=== PATIENT | male | born 1940 | race Caucasian/White ===

== ENCOUNTER 2021-12-04 17:54 | Emergency (ER) | payer MEDICARE ==
[2021-12-04 18:05] VITALS: BP 120/70; PULSE 101; RESP 20; TEMP 97.9
[2021-12-04] MEDS ORDERED: LIDOCAINE 1% INJ 10MG/ML (20 ML MDV) SQ ONE (18:50)
[2021-12-04] MEDS ORDERED: DIPH,PERTUS(ACELL)TETVAC-LF 0.5 ML VIAL IM ONE (19:20)
--- NOTE | 2021-12-04 19:38 | XR ---
EXAMINATION TYPE: XR hand complete LT DATE OF EXAM: 12/04/2021 COMPARISON: NONE HISTORY: Laceration injury TECHNIQUE: 3 views FINDINGS: There is some soft tissue deformity at the middle phalanx of the index finger consistent wi th laceration. There is transverse fracture through the shaft of the middle phalanx index finger left hand. No dislocation. No foreign body seen. IMPRESSION: Laceration deformity. Nondisplaced fracture. No foreign body seen.
[2021-12-04] MEDS ORDERED: ceFAZolin 1,000 MG VIAL (IM USE) IM STA (19:45)
--- NOTE | 2021-12-04 21:40 | ED ---
Wound/Laceration HPI - General Chief Complaint: Wound/Laceration Stated Complaint: L hand laceration Time Seen by Provider: 12/04/21 18:29 Source: patient Mode of arrival: ambulatory Limitations: no limitations - History of Present Illness Initial Comments: Patient is an 81-year-old male who presents to the emergency department with a chief complaint of laceration. Patient reports he is using a chainsaw when he cut his left index finger with it. Patient reports pain over the laceration. He states that he is able to bend his wrist and fingers with no limitation. He denies numbness and tingling of the hand/fingers. He denies blood thinner use. He is not up-to-date on tetanus. - Related Data Previous Rx's Medication Instructions Recorded Cephalexin [Keflex] 500 mg PO Q6HR 5 Days #20 cap 12/04/21 Allergies Allergy/AdvReac Type Severity Reaction Status Date / Time No Known Allergies Allergy Verified 12/04/21 18:05 Review of Systems ROS Statement: Those systems with pertinent positive or pertinent negative responses have been documented in the HPI. ROS Other: All systems not noted in ROS Statement are negative. Past Medical History Past Medical History: No Reported History History of Any Multi-Drug Resistant Organisms: None Reported Past Surgical History: No Surgical Hx Reported Past Psychological History: No Psychological Hx Reported Smoking Status: Never smoker Past Alcohol Use History: Occasional Past Drug Use History: None Reported General Exam Limitations: no limitations General appearance: alert, in no apparent distress Head exam: Present: atraumatic, normocephalic, normal inspection Eye exam: Present: normal appearance, PERRL, EOMI. Absent: scleral icterus, co njunctival injection, periorbital swelling Respiratory exam: Present: normal lung sounds bilaterally. Absent: respiratory distress, wheezes, rales, rhonchi, stridor Cardiovascular Exam: Present: regular rate, normal rhythm, normal heart sounds. Absent: systolic murmur, diastolic murmur, rubs, gallop, clicks GI/Abdominal exam: Present: soft, normal bowel sounds. Absent: distended, tenderness, guarding, rebound, rigid Extremities exam: Present: other (5 cm laceration over the anterior and medial side of left index finger, neurovascularly intact, full range of motion of the wrist and digits) Neurological exam: Present: alert, oriented X3, CN II-XII intact Psychiatric exam: Present: normal affect, normal mood Skin exam: Present: warm, dry, intact, normal color. Absent: rash Course Vital Signs 12/04/21 18:01 Temperature 97.9 F Pulse Rate 101 H Respiratory 20 Rate Blood Pressure 120/70 O2 Sat by Pulse 96 Oximetry Procedures - Laceration Laceration #1 Consent Obtained: verbal consent Indication: laceration Site: other (Left index finger) Size (cm): 5 Description: irregular Depth: simple, single layer Anesthetic Used: lidocaine 1% Anesthesia Technique: local infiltration, nerve block Pre-repair: wound explored, irrigated extensively, deep structures intact Type of Sutures: nylon Size of Sutures: 5-0 Number of Sutures: 13 Technique: simple, interrupted Complications: bleeding (Bleeding was controlled with tourniquet and direct pressure) Patient Tolerated Procedure: well - Orthopedic Splinting/Casting Injury #1 Upper Extremity Immobilizer: aluminum form splint (Left index finger) Medical Decision Making - Medical Decision Making This is an 81-year-old who presents with laceration. Thorough history and examination were performed. Left hand x-ray reveals a nondisplaced fracture with no foreign body. Wound was explored and irrigated extensively. It was approximated with 13 sutures. Patient did have increased bleeding which I was able to control with a tourniquet and direct pressure. Wound dressing was applied and index finger was placed in an aluminum form splint. Wound care education was provided. Kefzol and tetanus were given. Patient was referred to cash management specialist for further evaluation. He was discharged with Keflex prescription. He was instructed to return to the emergency department in 7-10 days for suture removal. Return parameters were discussed. Patient and verbalize understanding and are agreeable to plan. Dr. Russ is my attending. Disposition Clinical Impression: Laceration Disposition: HOME SELF-CARE Condition: Good Instructions (If sedation given, give patient instructions): Laceration (ED) Additional Instructions: Keep wound dry and clean. Take antibiotic as prescribed. Follow-up with cash management specialist tomorrow. Return to the emergency department if you experience new, concerning, or worsening symptoms. Prescriptions: Cephalexin [Keflex] 500 mg PO Q6HR 5 Days #20 cap Is patient prescribed a controlled substance at d/c from ED?: No Referrals: None,Stated [Primary Care Provider] - 1-2 days Abelino Gonzalez MD [Medical Doctor] - 1-2 days Time of Disposition: 21:40
[2021-12-04] MEDS ORDERED: ACET/COD 300 MG/30 MG STARTER PACK 6 TAB BTL PO STA (21:54)
== END 2021-12-04 22:05 | disposition home or self-care (01) ==
LOC: EC 17:54
DX: S61.211A Laceration without foreign body of left index finger without damage to nail, initial encounter (principal); W26.8XXA Contact with other sharp object(s), not elsewhere classified, initial encounter
CPT/HCPCS: 99283; 96372; 90471; 12002; 73130; 90715; J0690; J2001

== ENCOUNTER 2023-08-09 10:39 | Inpatient (IN) | payer MEDICARE ==
--- NOTE | 2023-08-09 11:34 | ED ---
Fall HPI - General Chief Complaint: Fall Stated Complaint: fall- R hip pain Time Seen by Provider: 08/09/23 11:20 Source: patient, family, RN notes reviewed Mode of arrival: ambulatory - History of Present Illness Initial Comments: Patient is an 82-year-old male presenting to the ER with chief complaint of a fall. Patient has no significant past medical history. Patient states he had a fall this morning while helping his out of her recliner. Patient states he felt dizzy, like the room is spinning, prior to his fall. He reports he's been feeling dizzy when he is laying in bed and when he rolled over the dizziness increased. Dizziness is a new symptoms for him. Patient states he landed on his right hip and has been having constant pain since. Denies any paresthesias, back pain, chest pain, shortness of breath, headache, urinary symptoms. Patient denies any blood thinner use, loss of consciousness, other injuries. - Related Data Previous Rx's Medication Instructions Recorded Cephalexin [Keflex] 500 mg PO Q6HR 5 Days #20 cap 12/04/21 Allergies Allergy/AdvReac Type Severity Reaction Status Date / Time No Known Allergies Allergy Verified 12/04/21 18:05 Review of Systems ROS Statement: Those systems with pertinent positive or pertinent negative responses have been documented in the HPI. ROS Other: All systems not noted in ROS Statement are negative. Past Medical History Past Medical History: No Reported History History of Any Multi-Drug Resistant Organisms: None Reported Past Surgical History: No Surgical Hx Reported Past Psychological History: No Psychological Hx Reported Smoking Status: Never smoker Past Alcohol Use History: Occasional Past Drug Use History: None Reported General Exam Limitations: no limitations General appearance: alert, in no apparent distress Head exam: Present: atraumatic, normocephalic, normal inspection Respiratory exam: Present: normal lung sounds bilaterally. Absent: respiratory distress, wheezes, rales, rhonchi, stridor Cardiovascular Exam: Present: regular rate, normal rhythm, normal heart sounds. Absent: systolic murmur, diastolic murmur, rubs, gallop, clicks GI/Abdominal exam: Present: soft, normal bowel sounds. Absent: distended, tenderness, guarding, rebound, rigid Extremities exam: Present: other (2+ distalis pedis pulses bilaterally, right leg roll elicits pain, ) Course Vital Signs 08/09/23 10:51 Temperature 98.7 F Pulse Rate 62 Respiratory 18 Rate Blood Pressure 130/74 O2 Sat by Pulse 98 Oximetry Medical Decision Making - Medical Decision Making Was pt. sent in by a medical professional or institution (JACINTO Chaves, AUTHORIZATION REP, urgent care, hospital, or shelter...) When possible be specific @ -No Did you speak to anyone other than the patient for history (EMS, parent, family, police, friend...)? What history was obtained from this source @ -[Family Did you review nursing and triage notes (agree or disagree)? Why? @ -I reviewed and agree with nursing and triage notes Were old charts reviewed (outside hosp., previous admission, EMS record, old EKG, old radiological studies, urgent care reports/EKG's, shelter records)? Report findings @ -No old charts were reviewed Differential Diagnosis (chest pain, altered mental status, abdominal pain women, abdominal pain men, vaginal bleeding, weakness, fever, dyspnea, syncope, headache, dizziness, GI bleed, back pain, seizure, CVA, palpatations, mental health, musculoskeletal)? @ -[nDifferential Musculoskeletal Muscular strain, contusion, ligament sprain, fracture, arthritis, septic arthritis, bursitis, cellulitis, muscle spasm, nerve compression, DVT, arterial occlusion, herpes zoster, electrolyte abnormality, tumor.... This is not meant to be in all inclusive list EKG interpreted by me (3pts min.). @ -As above X-rays interpreted by me (1pt min.). @ -Right hip x-ray shows foreshortening of the right femoral neck. CT interpreted by me (1pt min.). @ -[CT of right hip shows displaced subcapital fracture of right femur. CT of brain without contrast shows no evidence of acute intracranial hemorrhage or mass effect U/S interpreted by me (1pt. min.). @ -None done What testing was considered but not performed or refused? (CT, X-rays, U/S, labs)? Why? @ -None What meds were considered but not given or refused? Why? @ -None Did you discuss the management of the patient with other professionals (professionals i.e. JACINTO Chaves, AUTHORIZATION REP, lab, RT, psych nurse, social service worker, wind power project manager, teacher, tax revenue officer, case resolution specialist)? Give summary @ -Yes, I discussed the case with Viridiana from Dr. Orozco's office. She advised admission and NPO at midnight. Was smoking cessation discussed for >3mins.? @ -No Was critical care preformed (if so, how long)? @ -No Were there social determinants of health that impacted care today? How? (Homelessness, low income, unemployed, alcoholism, drug addiction, transportation, low edu. Level, literacy, decrease access to med. care, halfway, rehab)? @ -No Was there de-escalation of care discussed even if they declined (Discuss DNR or withdrawal of care, Hospice)? DNR status @ -No What co-morbidities impacted this encounter? (DM, HTN, Smoking, COPD, CAD, Cancer, CVA, ARF, Chemo, Hep., AIDS, mental health diagnosis, sleep apnea, morbid obesity)? @ -None Was patient admitted / discharged? Hospital course, mention meds given and route, prescriptions, significant lab abnormalities, going to OR and other pertinent info. @ -Admitted. X-ray showed foreshortening of the right femoral neck and suggested CT. CT of the right hip showed displaced subcapital fracture of right femur. Patient received IV Dilaudid and Zofran. Patient will be admitted to orthopedics for surgical repair. Patient expressed understanding. Undiagnosed new problem with uncertain prognosis? @ -No Drug Therapy requiring intensive monitoring for toxicity (Heparin, Nitro, Insulin, Cardizem)? @ -No Were any procedures done? @ -No Diagnosis/symptom? @ -Right displaced subcapital fracture of femur Acute, or Chronic, or Acute on Chronic? @ -Acute Uncomplicated (without systemic symptoms) or Complicated (systemic symptoms)? @ -Uncomplicated Side effects of treatment? @ -No Exacerbation, Progression, or Severe Exacerbation? @ -No Poses a threat to life or bodily function? How? (Chest pain, USA, MD, pneumonia, PE, COPD, DKA, ARF, appy, cholecystitis, CVA, Diverticulitis, Homicidal, Suicidal, threat to staff... and all critical care pts) @ -No - Lab Data Result diagrams: 08/09/23 12:38 08/09/23 12:38 Lab Results 08/09/23 08/09/23 08/09/23 Range/Units 12:38 12:38 14:48 WBC 11.8 H (3.8-10.6) k/uL RBC 4.31 (4.30-5.90) m/uL Hgb 13.6 (13.0-17.5) gm/dL Hct 41.1 (39.0-53.0) % MCV 95.4 (80.0-100.0) fL MCH 31.6 (25.0-35.0) pg MCHC 33.1 (31.0-37.0) g/dL RDW 12.8 (11.5-15.5) % Plt Count 181 (150-450) k/uL MPV 7.7 Neutrophils % 89 % Lymphocytes % 7 % Monocytes % 3 % Eosinophils % 1 % Basophils % 0 % Neutrophils # 10.5 H (1.3-7.7) k/uL Lymphocytes # 0.8 L (1.0-4.8) k/uL Monocytes # 0.3 (0-1.0) k/uL Eosinophils # 0.1 (0-0.7) k/uL Basophils # 0.0 (0-0.2) k/uL PT 11.3 (10.0-12.5) sec INR 1.0 (<1.2) APTT 23.2 (22.0-30.0) sec Sodium 139 (137-145) mmol/L Potassium 4.3 (3.5-5.1) mmol/L Chloride 107 (98-107) mmol/L Carbon Dioxide 24 (22-30) mmol/L Anion Gap 8 mmol/L BUN 20 (9-20) mg/dL Creatinine 0.83 (0.66-1.25) mg/dL Est GFR (CKD-EPI)AfAm >90 (>60 ml/min/1.73 sqM) Est GFR (CKD-EPI)NonAf 83 (>60 ml/min/1.73 sqM) Glucose 104 H (74-99) mg/dL Calcium 9.4 (8.4-10.2) mg/dL Magnesium 2.2 (1.6-2.3) mg/dL Total Bilirubin 0.8 (0.2-1.3) mg/dL AST 34 (17-59) U/L ALT 29 (4-49) U/L Alkaline Phosphatase 126 (38-126) U/L Total Protein 6.9 (6.3-8.2) g/dL Albumin 4.0 (3.5-5.0) g/dL - EKG Data -: EKG Interpreted by Me EKG Comments: EKG taken at 1300 shows normal sinus rhythm with a first-degree AV block and no T-wave abnormalities noted. Ventricular rate 78, GA interval 248, QRS duration 101, QT/QTC 418/451. Disposition Clinical Impression: Subcapital fracture of right femur Disposition: ADMITTED IP TO THIS HOSP Condition: Stable Is patient prescribed a controlled substance at d/c from ED?: No Referrals: None,Stated [Primary Care Provider] - 1-2 days Time of Disposition: 15:30
--- NOTE | 2023-08-09 11:44 | XR ---
EXAMINATION TYPE: XR Hip Complete RT DATE OF EXAM: 08/09/2023 COMPARISON: NONE HISTORY: Pain TECHNIQUE: 2 views submitted FINDINGS: There is foreshortening of the femoral neck suspicious for subcapital fracture. Moderate hypertrophic arthropathy of the hip. Diffuse osteopenia. IMPRESSION: 1. Foreshortening of the right femoral neck finding suspicious for subcapital fracture. Recommend CT scan.
[2023-08-09] MEDS ORDERED: HYDROmorphone 1 MG/ML 1 ML SYRINGE IM STA (11:57)
[2023-08-09] MEDS ORDERED: ONDANSETRON 4 MG/2 ML VIAL IVP STA (12:35)
[2023-08-09] MEDS ORDERED: HYDROmorphone 1 MG/ML 1 ML SYRINGE IVP STA (12:35)
[2023-08-09 13:01] LABS: Basophils % (A) 0 %; Eosinophils # (A) 0.1 k/uL (0-0.7); Eosinophils % (A) 1 %; HCT 41.1 % (39.0-53.0); HGB 13.6 gm/dL (13.0-17.5); Lymphocytes # (A) 0.8 k/uL (1.0-4.8); Lymphocytes % (A) 7 %; MCH 31.6 pg (25.0-35.0); MCHC 33.1 g/dL (31.0-37.0); MCV 95.4 fL (80.0-100.0); Mean Platelet Volume 7.7; Monocytes # (A) 0.3 k/uL (0-1.0); Monocytes % (A) 3 %; Neutrophils # (A) 10.5 k/uL (1.3-7.7); Neutrophils % (A) 89 %; Platelet Count 181 k/uL (150-450); RBC 4.31 m/uL (4.30-5.90); RDW 12.8 % (11.5-15.5); WBC 11.8 k/uL (3.8-10.6)
[2023-08-09 13:17] LABS: ALT 29 U/L (4-49); AST 34 U/L (17-59); African American GFR (CKD) >90 (>60 ml/min/1.73 sqM); Alkaline Phosphatase 126 U/L (38-126); Anion Gap 8 mmol/L; Blood Urea Nitrogen 20 mg/dL (9-20); Calcium 9.4 mg/dL (8.4-10.2); Carbon Dioxide 24 mmol/L (22-30); Chloride 107 mmol/L (98-107); Glucose 104 mg/dL (74-99); Magnesium 2.2 mg/dL (1.6-2.3); Non-African American GFR(CKD) 83 (>60 ml/min/1.73 sqM); Potassium 4.3 mmol/L (3.5-5.1); Sodium 139 mmol/L (137-145); Total Bilirubin 0.8 mg/dL (0.2-1.3); Total Protein 6.9 g/dL (6.3-8.2)
--- NOTE | 2023-08-09 14:03 | CT ---
EXAMINATION TYPE: CT brain wo con DATE OF EXAM: 08/09/2023 COMPARISON: None HISTORY: Pain CT DLP: 1302 mGycm Automated exposure control for dose reduction was used. FINDINGS: Exam is limited in assessment for hemorrhage due to artifact. There is ectasia of the vertebral syste m with intracranial atherosclerotic matter changes. There is no obvious midline shift. No obvious siz able intracranial hemorrhage. Moderate generalized degenerative change and mild hypoattenuation in th e white matter which is nonspecific but most typical remote white matter ischemia. Slight asymmetric CSF appearance along the superior right cerebral convexity appears chronic. Craniocervical junction m aintained. Sella turcica is normal. Orbits are symmetric. IMPRESSION: LIMITED EXAM DUE TO ARTIFACT DEMONSTRATES NO EVIDENCE OF ACUTE INTRACRANIAL HEMORRHAGE OR MASS EFFECT VISUALIZED.
--- NOTE | 2023-08-09 14:13 | CT ---
EXAMINATION TYPE: CT hip RT wo con DATE OF EXAM: 08/09/2023 COMPARISON: X-ray 08/09/2023 HISTORY: Fall, Rt hip pain CT DLP: 403 mGycm Automated exposure control for dose reduction was used. FINDINGS: There is a displaced subcapital fracture of the right hip with angulation. There is moderate hypertrophic arthropathy of the hip correlate for femoral acetabular impingement. P ubic rami are intact and there is hypertrophic change of the pubic symphysis. Adjacent soft tissue edema to the fracture noted. Bladder is distended and the prostate is enlarged. Vascular calcifications noted. IMPRESSION: DISPLACED SUBCAPITAL FRACTURE RIGHT FEMUR.
[2023-08-09] MEDS ORDERED: ONDANSETRON 4 MG/2 ML VIAL IVP PRN (14:28)
[2023-08-09] MEDS ORDERED: NALOXONE 0.4 MG/ML 1 ML VIAL IV PRN (14:38)
[2023-08-09 15:07] LABS: Partial Thromboplastin Time 23.2 sec (22.0-30.0); Prothrombin Time 11.3 sec (10.0-12.5)
[2023-08-09] MEDS: SODIUM CHLORIDE 0.9% 1,000 ML IV SCH (15:38)
--- NOTE | 2023-08-09 15:41 | XR ---
EXAMINATION TYPE: XR chest 1V DATE OF EXAM: 08/09/2023 COMPARISON: NONE HISTORY: Presurgical TECHNIQUE: Single frontal view of the chest is obtained. FINDINGS: There is no focal air space opacity, pleural effusion, or pneumothorax seen. The cardiac silhouette size is within normal limits. The osseous structures are intact. There is a 1 cm nodule adjacent to left heart border. Underlying COPD. Diffuse osteopenia and AC joint arthropathy. Ectasia of the thoracic aorta. IMPRESSION: 1. 1 cm nodule left lower lobe. Recommend CT scan.
--- NOTE | 2023-08-09 15:53 | P.HPOR ---
History of Present Illness H&P Date: 08/09/23 This is an 82-year-old male who is admitted for right hip fracture. Patient is seen and evaluated at bedside today. Patient states that he was at home helping his get out of a chair when he felt dizzy and fell. Patient states that this happened around 8 AM this morning. Patient presented to the emergency room due to continued pain and x-rays confirmed right hip fracture. Patient denies any significant past medical history. Patient admits to chronic swelling in both lower extremities. Patient states that he does not take any medications. Patient states that he normally ambulates without any assistive devices and lives at home with his . Patient denies any fever/chills, numbness, weakness, tingling, abdominal pain, shortness of breath or chest pain. Review of Systems See HPI. Past Medical History Past Medical History: No Reported History History of Any Multi-Drug Resistant Organisms: None Reported Past Surgical History: No Surgical Hx Reported Past Psychological History: No Psychological Hx Reported Smoking Status: Never smoker Past Alcohol Use History: Occasional Past Drug Use History: None Reported Medications and Allergies Home Medications Medication Instructions Recorded Confirmed Type Cephalexin [Keflex] 500 mg PO Q6HR 5 Days #20 cap 12/04/21 Rx Allergies Allergy/AdvReac Type Severity Reaction Status Date / Time No Known Allergies Allergy Verified 12/04/21 18:05 Physical Examination On exam patient is lying comfortably in bed in no acute distress. Patient is alert and oriented 3. Right lower extremity: There is pain and limitation with any attempted motion of the right hip. Mild shortening and external rotation. There is swelling of bilateral lower extremities with venous stasis dermatitis present. Posterior tibial pulse is 2+. Patient has full range of motion of the right foot and ankle. Calf is soft and nontender to palpation. Sensation intact. Neurovascular status and circulatory status are intact. Head is normocephalic and atraumatic. On exam of the left lower extremity there is some pain in the left knee which the patient states is chronic for him. Otherwise calf is soft and nontender to palpation. Sensation intact. Neurovascular status and circulatory status are intact. Exams of bilateral upper extremities are within normal limits. Results X-rays and a CT of the right hip and pelvis reveal right femoral neck fracture. - Labs Labs: Abnormal Lab Results - Last 24 Hours (Table) 08/09/23 08/09/23 Range/Units 12:38 12:38 WBC 11.8 H (3.8-10.6) k/uL Neutrophils # 10.5 H (1.3-7.7) k/uL Lymphocytes # 0.8 L (1.0-4.8) k/uL Glucose 104 H (74-99) mg/dL H & H 08/09/23 Range/Units 12:38 Hgb 13.6 (13.0-17.5) gm/dL Hct 41.1 (39.0-53.0) % Coagulation 08/09/23 Range/Units 14:48 INR 1.0 (<1.2) Result Diagrams: 08/09/23 12:38 08/09/23 12:38 Assessment and Plan (1) Fall Current Visit: Yes Status: Acute Code(s): W19.XXXA - UNSPECIFIED FALL, INITIAL ENCOUNTER SNOMED Code(s): 9839484 (2) Closed right hip fracture Current Visit: Yes Status: Acute Code(s): S72.001A - FRACTURE OF UNSP PART OF NECK OF RIGHT FEMUR, INIT SNOMED Code(s): 699359700 Plan: 1. Patient is to be NPO after midnight. 2. Continue bed rest and pain control. 3. Appreciate input from internal medicine. 4. Planning for right hip hemiarthroplasty on 08/10/[address] Orozco pending medical clearance and patient consent. All questions and concerns are addressed at bedside today with the patient and his .
[2023-08-09] MEDS: HYDROmorphone 0.5 MG/0.5 ML SYRINGE IVP PRN (18:55)
[2023-08-10] MEDS: HYDROmorphone 0.5 MG/0.5 ML SYRINGE IVP PRN (01:17)
[2023-08-10] MEDS: SODIUM CHLORIDE 0.9% 1,000 ML IV SCH ×3 (05:16→18:50)
--- NOTE | 2023-08-10 06:33 | P.CONS ---
History of Present Illness - Reason for Consult Consult date: 08/10/23 pre op clearance - Chief Complaint right leg pain - History of Present Illness 82 year old male with hisotyr of skin cancer he is coming in for evaluation of right hip pain. This morning he was helping his that when he suddenly felt dizzy and fell down resulted in severe pain in his right hip for which she is coming in for evaluation he denies any head injury he denies any loss of consciousness denies any chest pain shortness of breath denies any some lower incidences in the past. he believes he is in good health , he reports pain is controlled with meds, but could not urinate earlier and had to have a catheter. he denies any associated palpitations, chest pain , SOB, fever, chills, nausea or vomiting. review of systems Pertinent positives as noted in HPI. All other systems were reviewed and are negative on exam Constitutional: No acute distress, conversant, pleasant Eyes: Anicteric sclerae, moist conjunctiva, Pupils equal round reactive to light ENMT: NC/AT Oropharynx clear, no erythema, or exudates Neck: Supple, no masses, or JVD No carotid bruits No thyromegaly Lungs: Clear to auscultation Clear to percussion Normal respiratory effort, no accessory muscle use Cardiovascular: Heart regular in rate and rhythm, No murmurs, gallops, or rubs No peripheral edema Abdominal: Soft Nontender, no guarding, rebound or rigidity Abdomen moving with respiration Normoactive bowel sounds No hepatomegaly, No splenomegaly No palpable mass No abdominal wall hernia noted Extremities: No digital cyanosis No clubbing Pedal pulses intact and symmetrical Radial pulses intact and symmetrical No calf tenderness Psychiatric: Alert and oriented to person, place and time Appropriate affect fair judgement Neuro Muscles Strength 5/5 in all 4 extremities except limited exam over ri ght lower extremity due to pain Sensation to light touch grossly present throughout Cranial nerves II-XII grossly intact Lymphatics: no palpable cervical or supraclavicular lymph nodes Past Medical History Past Medical History: No Reported History Additional Past Medical History / Comment(s): Skin cancer on face- treated with a one a day capsule treatment for 6 months History of Any Multi-Drug Resistant Organisms: None Reported Past Surgical History: No Surgical Hx Reported, Tonsillectomy Past Anesthesia/Blood Transfusion Reactions: No Reported Reaction Past Psychological History: No Psychological Hx Reported Smoking Status: Never smoker Past Alcohol Use History: Occasional Past Drug Use History: None Reported Medications and Allergies Home Medications Medication Instructions Recorded Confirmed Type Ascorbic Acid [Vitamin C] 1,000 mg PO W/BRKFST 08/09/23 08/09/23 History Multivitamins, Thera [Multivitamin 1 tab PO W/BRKFST 08/09/23 08/09/23 History (formulary)] Pyridoxine HCl (Vitamin B6) 100 mg PO W/BRKFST 08/09/23 08/09/23 History [Vitamin B-6] Quercetin 500 mg PO W/BRKFST 08/09/23 08/09/23 History Selenium 100 mcg PO W/BRKFST 08/09/23 08/09/23 History Ubidecarenone [Coenzyme Q10] 200 mg PO W/BRKFST 08/09/23 08/09/23 History Vitamin B Complex 1 cap PO W/BRKFST 08/09/23 08/09/23 History Allergies Allergy/AdvReac Type Severity Reaction Status Date / Time No Known Allergies Allergy Verified 08/09/23 16:12 Physical Exam Vitals: Vital Signs Temp Pulse Pulse Resp BP BP Pulse Ox 08/10/23 01:52 98.5 F 100 17 107/55 91 L 08/09/23 19:30 98 F 95 17 152/70 91 L 08/09/23 19:27 18 08/09/23 17:24 98.3 F 95 18 127/80 97 08/09/23 15:47 97 08/09/23 15:44 99 20 126/78 91 L 08/09/23 14:05 97.6 F 80 19 128/76 94 L 08/09/23 10:51 98.7 F 62 18 130/74 98 Intake and Output 08/09/23 08/09/23 08/10/23 14:59 22:59 06:59 Output Total 100 1000 Balance -100 -1000 Output: Urine 100 1000 Straight 1000 Other: Voiding Method Urinal Weight 86.183 kg 86.183 kg Results CBC & Chem 7: 08/09/23 12:38 08/09/23 12:38 Labs: Abnormal Lab Results - Last 24 Hours (Table) 08/09/23 08/09/23 Range/Units 12:38 12:38 WBC 11.8 H (3.8-10.6) k/uL Neutrophils # 10.5 H (1.3-7.7) k/uL Lymphocytes # 0.8 L (1.0-4.8) k/uL Glucose 104 H (74-99) mg/dL Assessment and Plan Assessment: patient is 82 year old Male , presetned with right hip pain after a fall. Patient denies any recent history or symptoms of congestive heart failure, mycardial infarction, syncope, arrhythmia, palpitation, or exertional dyspnea. Patient denies any past medical history of stroke, CAD, CHF, CKD, or DM. Patient is functional at baseline at >4 METs he is able to perform house chores with no limitations. Patient labs reviewed unremarkable , EKG showed normal sinus rhythm Patient is scheduled for orthopedic surgery to fix right hip fracture. This is of moderate risk, however, patient has no medical risk factors from her past medical history. Patient can proceed to surgery with moderate but acceptable perioperative cardiovascular risk factors. This has been explained to the patient , all questions answered, patient verbalized understanding and agreement. right hip fracture accidental fall , feeling dizzy CT brain no acute pathology CXR showed left sided pulmonary nodule , consider CT of the chest per radiology recommendations patient never a smoker pain control with opiates management per primary surgical team IVF hydration with normal saline 75 cc per hour WBC 11.8, Hgb 13.6 Na 139 K 4.3 Mg 2.2 Cr 0.8 thank you for this consultation
[2023-08-10] MEDS ORDERED: LACTATED RINGERS 1,000 ML IV ONE (15:48)
[2023-08-10] MEDS ORDERED: fentaNYL (PF) 50 MCG/ML 2 ML AMP ONE (16:06)
[2023-08-10] MEDS ORDERED: KETAMINE HCL IN 0.9 % NACL 50 MG/5 ML SYRINGE ONE (16:06)
[2023-08-10] MEDS ORDERED: PROPOFOL 10 MG/ML 20 ML VIAL IV ONE (16:06)
[2023-08-10] MEDS ORDERED: PHENYLEPHRINE 10 MG/ML 5 ML VIAL ONE (16:06)
[2023-08-10] MEDS ORDERED: MIDAZOLAM 2 MG/2 ML VIAL ONE (16:06)
[2023-08-10] MEDS ORDERED: ePHEDrine 50 MG/ML 1 ML VIAL ONE (16:06)
[2023-08-10] MEDS ORDERED: SODIUM CHLORIDE 0.9% 50 ML with ceFAZolin 2,000 MG IV ONE ×2 (16:09)
[2023-08-10] MEDS ORDERED: NALOXONE 0.4 MG/ML 1 ML VIAL IV PRN (18:17)
[2023-08-10] MEDS ORDERED: HYDROmorphone 0.5 MG/0.5 ML SYRINGE IVP PRN (18:17)
[2023-08-10] MEDS ORDERED: BENZOCAINE/MENTHOL LOZENG 1 EACH LOZENGE MUCOUS MEM PRN (18:17)
[2023-08-10] MEDS ORDERED: HYDROmorphone 1 MG/ML 1 ML SYRINGE IVP PRN (18:17)
--- NOTE | 2023-08-10 18:27 | P.OP ---
Date of Procedure: 08/10/23 Preoperative Diagnosis: Right hip comminuted femoral neck fracture, traumatic due to a fall Postoperative Diagnosis: Same Anesthesia: spinal Pathology: other (Femoral head to pathology) Condition: stable Disposition: PACU Description of Procedure: Preoperative diagnosis: Right femoral neck comminuted fracture, traumatic due to a fall Preoperative diagnosis: Same Procedure: Right Hip hemiarthroplasty Surgeon: Dr. Pam Jerome.: Christina CASEY who is present that the entire the case persistence during positioning dissection exposure placement of hardware and closure Anesthesia: Spinal Estimated blood loss: Approximately 200 mL Components implanted: [employer] size for fracture some collar with a 55 mm head and +4 neck and cement Disposition: To recovery room in good stable condition Operative indications The patient sustained a injury while he is trying to help his at home. His is often in a wheelchair and he fell while helping her. He had acute sudden right hip pain and was unable to get up. and suffered a femoral neck fracture which was displaced and angulated. We were involved in the case in regard to his hip fracture. The patient has other medical issues and some skin issues which she is getting active treatment. In regards to his right hip he had a new for traumatic fracture from which she was incapacitated. After evaluation it was determined that they would be a candidate for hip hemiarthroplasty via surgical intervention. This would give them the best chance of mobilization and ambulation. We discussed the range of treatment options from conservative to surgical. They elected proceed with surgical intervention. We answered their questions to the best of our ability healing which they can understand. We discussed all the risks, occasions alternatives and benefits of different treatment options including surgery in regards to his injury. I answered his questions best my ability. They signed an informed consent. Operative summary After obtaining informed consent evaluation by anesthesia, preoperative evaluation and clearance for medical service, the patient was identified and prepped Boucher area and the surgical site was marked. There brought to the operating room where the given appropriate anesthesia by the anesthesia department in standard fashion without any complications. Once the anesthesia was established we were able to position the patient. There placed in a lateral decubitus position with the operative side up being careful to pad any bony prominences and pressure points and place a excellent roll appropriately. The airway and C-spine was monitored continuously. Once patient was well positioned lower extremity was prepped and draped in normal standard sterile fashion. An appropriate keystone protocol and timeout was completed and were able to proceed with surgery. A curvilinear incision was established over the greater trochanter. Dissection was taken down to the tensor fascia sheri which was split in line with its fibers and extended proximally into the gluteal fibers. A Charnley retractor was established. The trochanteric bursa was inflamed and removed. I was able to then dissect down off the posterior aspect of the greater trochanter taking the piriformis tendon and the posterior capsule in one full-thickness flap and tacking it with suture. This expose the fracture at the femoral neck which was easily identified. A guide was used to establish the appropriate femoral neck cut and a bone- cutting saw was used to establish the femoral neck cut and good alignment and good position. All the bony fragments were removed. There was significant comminution of the femoral neck. Comminuted fragments were removed. The lesser trochanter appeared intact without any split. I was then able to use a corkscrew device to remove the femoral head from the acetabulum. Any loose fragments in the acetabulum were removed. The femoral head was measured for the appropriate size implant and then passed off for pathology. Appropriate retractors were placed and I established a lateral box cut chisel. I then used a starting reamer to establish the femoral canal area I then sequentially reamed with sequential reamers until we had good bony chatter distally. With this we then started to broach with sequential broaches to the appropriate sized to we had good fit and fill. There is no evidence any fracture in the possible femur. With the appropriate size broach well seated and stable I placed the trial neck and head. A gentle reduction was performed to get good reduction. The hip was taken through a good range of motion and found to be stable in the position of sleep and through a range of motion. It had a good shuck test. We were able to then dislocate the trial prosthesis. The broach was found to remain stable. It was then removed. The wound was copiously irrigated and suctioned dry with pulsatile lavage. The appropriate size femoral stem was chosen. The femoral shaft was prepared and irrigated copiously. It was then filled and pressurized with cement and then the shaft was positioned and placed in good alignment and good position with excellent fit and fill seated appropriately over the calcar until the cement was cured and solid. It was checked and found to be stable. The trunnion was cleaned and dried the femoral head was then positioned over the femoral neck malleted in position checked and found to be stable. The hip prosthesis was then gently reduced back into the acetabulum and found to have excellent position and excellent stability and excellent range of motion with stability. There is no evidence of dislocation or fracture. The wound was copiously irrigated and suctioned dry. We are able to proceed with closure. The piriformis and posterior capsule were reapproximated to the posterior aspect of the greater trochanter with transosseous stitches. The wound was irrigated and suctioned dry. The fascia was closed with #2 Quill for watertight closure. Subcutaneous tissue was irrigated and suctioned dry. Subcu tissues closed with 2-0 Vicryl subcuticular tissue was closed with 30 Quill. Wound is clean and dried and dressed with Dermabond and OpSite tape Drapes were broken down, the hip was held in stable position, and an abduction pillow was placed. The patient was then transferred back to their hospital bed being careful to maintain the hip and C-spine alignment and airway. Once stable to patient was transferred back to the postanesthesia care unit to be readmitted for pain control and DVT prophylaxis medical management and monitoring and mobilization we will continue follow patient closely throughout their postoperative course.
--- NOTE | 2023-08-10 19:18 | XR ---
EXAMINATION TYPE: XR Hip Limited RT DATE OF EXAM: 08/10/2023 6:40 PM CLINICAL INDICATION:Male, 82 years old with history of Status post hip surgery, assess surgical align [facility]; [facility] COMPARISON: 08/09/2023 TECHNIQUE: XR Hip Limited RT; hip was examined in the frontal projections FINDINGS: Post arthroplasty changes, hardware is intact, alignment is appropriate. No evidence of fra cture. Postoperative changes of the soft tissues with subcutaneous gas. No evidence of any acute osse ous pathology or joint dislocation. IMPRESSION: Hip arthroplasty with hardware intact and in appropriate alignment. No acute fracture.
[2023-08-10] MEDS: ASPIRIN 325 MG TAB PO SCH (22:23)
[2023-08-11] MEDS: SODIUM CHLORIDE 0.9% 1,000 ML IV SCH ×4 (05:48→20:18)
[2023-08-11] MEDS ORDERED: NON FORMULARY DRUG (Ubidecarenone [Coenzyme Q10] 200 MG Capsule) PO SCH (07:30)
[2023-08-11] MEDS ORDERED: NON FORMULARY DRUG (Selenium [Selenium] 100 MCG Tablet) PO SCH (07:30)
[2023-08-11 08:02] LABS: Basophils % (A) 0 %; Eosinophils % (A) 1 %; HCT 32.7 % (39.0-53.0); HGB 11.2 gm/dL (13.0-17.5); Lymphocytes # (A) 0.8 k/uL (1.0-4.8); Lymphocytes % (A) 9 %; MCH 32.4 pg (25.0-35.0); MCHC 34.3 g/dL (31.0-37.0); MCV 94.5 fL (80.0-100.0); Mean Platelet Volume 7.9; Monocytes # (A) 0.5 k/uL (0-1.0); Monocytes % (A) 5 %; Neutrophils # (A) 7.3 k/uL (1.3-7.7); Neutrophils % (A) 83 %; Platelet Count 127 k/uL (150-450); RBC 3.46 m/uL (4.30-5.90); RDW 13.1 % (11.5-15.5); WBC 8.7 k/uL (3.8-10.6)
--- NOTE | 2023-08-11 08:30 | P.PN ---
Progress Note - Text Progress Note Date: 08/11/23 Postoperative day #1 Patient is seen and examined today at bedside. The patient has some pain around the surgical site as expected. Pain is being controlled with medication. She has not yet gotten out of bed. He denies any new pains or numbness or tingling. He has not been able to void well on his own area he had to be straight cathed overnight. Physical Exam Afebrile with stable vital signs Abdomen is soft nontender. Chest has good excursion deep and space expiration The incision site is clean dry and intact. No erythema there is no purulence. Thigh has some mild swelling without any induration or drainage Extremities have not had neurologic change from prior to surgery. Sustained dorsal flexion plantar flexion and EHL Calves and thighs were soft nontender without evidence of DVT. Assessment/Plan Postoperative day #1 status post right hip hemiarthroplasty for acute right femoral neck fracture Patient is progressing as expected from the surgery. So far he is doing well in terms of his hip. We'll start to get him up out of bed today We will continue to increase the patient's mobilization with therapy. Patient is having trouble voiding on his own. He does not really have a primary care physician and with his urinary retention and required straight cath I think that we can start Flomax and if he is not able to void well we can place a catheter to keep overnight to give him some bowel rest before trialing to DC the catheter tomorrow We will continue pain control with oral or IV medications. We'll continue to follow patient closely.
[2023-08-11] MEDS: PYRIDOXINE 50 MG TAB PO SCH (09:50)
[2023-08-11] MEDS: FOLIC ACID-VIT B COMPLEX-VIT C 1 CAP PO SCH (09:50)
[2023-08-11] MEDS: ASCORBIC ACID 500 MG TAB PO SCH (09:51)
[2023-08-11] MEDS: MULTIVITAMINS, THERA 1 EACH TAB PO SCH (09:51)
[2023-08-11] MEDS: SENNOSIDES-DOCUSATE SODIUM 1 EACH TAB PO SCH (09:54)
[2023-08-11] MEDS: TAMSULOSIN 0.4 MG CAP.ER.24H PO SCH (09:54)
[2023-08-11] MEDS: ASPIRIN 325 MG TAB PO SCH ×2 (09:54→20:17)
[2023-08-11] MEDS ORDERED: RX INFO: IV CONTRAST WAS GIVEN 1 EACH MISC MISCELLANE PRN (10:24)
--- NOTE | 2023-08-11 10:24 | P.PN ---
Subjective Progress Note Date: 08/11/23 Patient says that he's had trouble urinating and feels generally weak following the procedure. Last night he needed a straight catheterization to relieve himself. He does have an appetite however. Gen: awake, alert HEENT: normocephalic, atraumatic, good hearing acuity, moist mucous membranes Resp: good air exchange, breathing comfortably with no accessory muscle use CVS: good distal perfusion x 4, GI: soft, NTTP, ND : no SPT, no CVAT, byrd catheter not present MSK: no pitting edema, no clubbing Neuro: non-focal, moving all extremities Psych: cooperative, euthymic mood Assessment/plan: patient is 82 year old Male , presetned with right hip pain after a fall. Patient labs reviewed unremarkable , EKG showed normal sinus rhythm Patient is status post right hip fracture ORIF. right hip fracture accidental fall , feeling dizzy -Status post ORIF -Orthopedic surgery following and managing for pain as well as DVT prophylaxis Acute blood loss anemia, expected outcome of surgery -Start patient on oral iron daily Urinary retention -BladderScan today with every 6 hours straight caths if patient continues to retain 1 cm pulmonary nodule -Computed tomography scan of the chest ordered Objective - Vital Signs Vital signs: Vital Signs Temp 99.2 F 08/11/23 01:40 Pulse 105 H 08/11/23 05:24 Resp 18 08/11/23 03:21 BP 105/55 08/11/23 05:24 Pulse Ox 90 L 08/11/23 03:21 FiO2 Intake & Output 08/10/23 08/11/23 08/11/23 18:59 06:59 18:59 Intake Total 1750 Output Total 850 975 Balance 900 -975 Intake: IV 850 Intake, IV Titration 900 Amount Sodium Chloride 0.9% 1, 900 000 ml @ 100 mls/hr IV . Q10H JAJA Rx#:[id number] Output: Urine 650 975 Straight 850 Estimated Blood Loss 200 Other: Voiding Method Urinal Urinal # Voids 2 - Labs CBC & Chem 7: 08/11/23 07:13 08/09/23 12:38 Labs: Abnormal Lab Results - Last 24 Hours (Table) 08/11/23 Range/Units 07:13 RBC 3.46 L (4.30-5.90) m/uL Hgb 11.2 L (13.0-17.5) gm/dL Hct 32.7 L (39.0-53.0) % Plt Count 127 L (150-450) k/uL Lymphocytes # 0.8 L (1.0-4.8) k/uL
[2023-08-11] MEDS: HYDROcodone/APAP 5-325MG 1 EACH TAB PO PRN ×2 (12:20→22:11)
[2023-08-11] MEDS: FERROUS SULFATE 325 MG TAB PO SCH (12:20)
--- NOTE | 2023-08-11 12:33 | CT ---
EXAMINATION TYPE: CT chest w con CT DLP: 265.30 mGycm, Automated exposure control for dose reduction was used. DATE OF EXAM: 08/11/2023 11:59 AM COMPARISON: Chest radiograph from 08/09/2023 CLINICAL INDICATION:Male, 82 years old with history of Pulmonary nodule; TECHNIQUE: Multiple axial images were obtained through the chest. Sagittal and coronal reformats were created for review. Contrast used:100 mL of Isovue 300 with IV Contrast (None if empty) Oral contrast used: (None if empty) FINDINGS: LUNGS/ PLEURA: No evidence of focal consolidation, pneumothorax or pleural effusion. There is streaky atelectasis in the lung bases. Left greater than right. AIRWAY: Patent and unremarkable. HEART: Heart is within normal limits for size. There is severe coronary artery atherosclerosis. MEDIASTINUM: No gross evidence of adenopathy. VASCULATURE: No aortic aneurysm. MUSCULOSKELETAL: No acute osseous abnormalities SOFT TISSUES/LYMPH NODES: Unremarkable. LOWER NECK: No significant findings. UPPER ABDOMEN: No significant findings. IMPRESSION: 1. The left lower lobe demonstrates some streaky atelectasis no suspicious pulmonary nodules visuali zed. 2. No evidence for acute thoracic process. 3. Severe coronary artery atherosclerosis.
[2023-08-12] MEDS: SODIUM CHLORIDE 0.9% 1,000 ML IV SCH ×4 (01:17→20:22)
[2023-08-12] MEDS: FOLIC ACID-VIT B COMPLEX-VIT C 1 CAP PO SCH (06:33)
[2023-08-12] MEDS: ASCORBIC ACID 500 MG TAB PO SCH (06:33)
[2023-08-12] MEDS: PYRIDOXINE 50 MG TAB PO SCH (06:33)
[2023-08-12] MEDS: MULTIVITAMINS, THERA 1 EACH TAB PO SCH (06:33)
--- NOTE | 2023-08-12 09:02 | P.PN ---
Subjective Progress Note Date: 08/12/23 Patient had to have byrd catheter placed yesterday overnight due to urinary retention. Pt does report appetite. Gen: awake, alert HEENT: normocephalic, atraumatic, good hearing acuity, moist mucous membranes Resp: good air exchange, breathing comfortably with no accessory muscle use CVS: good distal perfusion x 4, GI: soft, NTTP, ND : no SPT, no CVAT, byrd catheter not present MSK: no pitting edema, no clubbing Neuro: non-focal, moving all extremities Psych: cooperative, euthymic mood Assessment/plan: patient is 82 year old Male , presetned with right hip pain after a fall. Patient labs reviewed unremarkable , EKG showed normal sinus rhythm Patient is status post right hip fracture ORIF. right hip fracture accidental fall , feeling dizzy -Status post ORIF -Orthopedic surgery following and managing for pain as well as DVT prophylaxis Acute blood loss anemia, expected outcome of surgery -Start patient on oral iron daily Urinary retention -maintain urinary catheter Atelectasis -Computed tomography scan of the chest ordered and reviewed today, this finding on CXR of nodule was confirmed to be streak atelectasis and there is no evidence of nodule Objective - Vital Signs Vital signs: Vital Signs Temp 98.4 F 08/12/23 07:55 Pulse 87 08/12/23 07:55 Resp 20 08/12/23 07:55 BP 128/68 08/12/23 07:55 Pulse Ox 92 L 08/12/23 07:55 FiO2 Intake & Output 08/11/23 08/12/23 08/12/23 19:59 06:59 18:59 Output Total Balance Output: Urine Other: Voiding Method Indwelling Catheter - Labs CBC & Chem 7: 08/11/23 07:13 08/09/23 12:38
--- NOTE | 2023-08-12 09:14 | P.PN ---
Progress Note - Text Progress Note Date: 08/12/23 Postoperative day #2 Patient is seen and examined today at bedside. The patient has some pain around the surgical site as expected. Pain is being controlled with medication. He was able to sit up in a chair yesterday for short time. He is tolerating his regular diet. He is passing some gas. He still has his Boucher intact as it was reinserted due to urinary retention. He started Flomax yesterday Physical Exam Afebrile with stable vital signs Abdomen is soft nontender. Chest has good excursion deep and space expiration The incision site is clean dry and intact. No erythema there is no purulence. His thigh does not have any significant tenderness. His right incision dressing is clean and dry. His left thigh dressings intact. Extremities have not had neurologic change from prior to surgery. Calves and thighs were soft nontender without evidence of DVT. Assessment/Plan Postoperative day #2 status post right hip hemiarthroplasty Patient is progressing as expected from the surgery. I history likely that he will need placement posthospitalization with penitentiary or rehab. This likely happened on Sunday. We will continue to increase the patient's mobilization with therapy. We should try to discontinue Boucher again today. He was able start his Flomax. Hopefully he will be able to spontaneously void. If he is unable then should place a Boucher back in and keep until tomorrow morning. If he needs to keep a Boucher intact and we will give consult urology hand have him to follow up. We will continue pain control with oral or IV medications. We'll continue to follow patient closely.
[2023-08-12] MEDS: TAMSULOSIN 0.4 MG CAP.ER.24H PO SCH (10:07)
[2023-08-12] MEDS: ASPIRIN 325 MG TAB PO SCH ×2 (10:08→20:22)
[2023-08-12] MEDS: FERROUS SULFATE 325 MG TAB PO SCH (10:08)
[2023-08-12] MEDS: SENNOSIDES-DOCUSATE SODIUM 1 EACH TAB PO SCH (10:08)
[2023-08-12] MEDS: HYDROcodone/APAP 5-325MG 1 EACH TAB PO PRN (10:50)
[2023-08-13] MEDS: SODIUM CHLORIDE 0.9% 1,000 ML IV SCH ×3 (01:18→15:12)
[2023-08-13] MEDS: PYRIDOXINE 50 MG TAB PO SCH (06:39)
[2023-08-13] MEDS: ASCORBIC ACID 500 MG TAB PO SCH (06:40)
[2023-08-13] MEDS: MULTIVITAMINS, THERA 1 EACH TAB PO SCH (06:40)
[2023-08-13] MEDS: FOLIC ACID-VIT B COMPLEX-VIT C 1 CAP PO SCH (06:40)
[2023-08-13] MEDS: SENNOSIDES-DOCUSATE SODIUM 1 EACH TAB PO SCH (07:08)
[2023-08-13] MEDS: TAMSULOSIN 0.4 MG CAP.ER.24H PO SCH (07:08)
[2023-08-13] MEDS: ASPIRIN 325 MG TAB PO SCH (07:08)
--- NOTE | 2023-08-13 08:19 | P.DS ---
Providers Date of admission: 08/09/23 15:52 Expected date of discharge: 08/13/23 Attending physician: Khalif Orozco Consults: 08/09/23 15:06 Consult Physician Routine Consulting Provider: yLnda Gibbons Consult Reason/Comments: medical clearance for right hip hemiarthroplasty Do you want consulting provider notified?: Yes Primary care physician: Stated None - Discharge Diagnosis(es) (1) Right hip pain Current Visit: Yes Status: Acute (2) Atelectasis Current Visit: Yes Status: Acute (3) Urinary retention Current Visit: Yes Status: Acute (4) Acute blood loss anemia Current Visit: Yes Status: Acute (5) Closed right hip fracture Current Visit: Yes Status: Acute (6) Fall Current Visit: Yes Status: Acute Hospital Course: This is a pleasant 82-year-old male who presented with right hip comminuted femoral neck fracture, traumatic due to a fall. He was admitted for a right hip hemiarthroplasty. The patient tolerated the procedure well and did well postoperatively. The pain in his right hip is adequately controlled. He is slow but has able to perform some ambulation with the assistance of a walker. If patient is able to be cleared by multiple providers, he does feel He could be ready for discharge today. An orthopedic standpoint, condition on day of discharge stable. Patient will be discharged a rehabilitation facility. Patient was discussed with case management today who states he would be approved for discharge today. Postoperatively, he has had difficulty with urinary retention. Boucher catheter was placed over the weekend. It was discontinued this morning. If patient is unable to void independently today, he will need possible urology consult and reinsertion of Boucher catheter prior to discharge. Patient will be cleared by medicine prior to discharge. Patient was cleared preoperatively for surgery by [facility] physicians group. Patient currently denies any nausea, vomiting, fever, or chills. Patient is eatin without difficulty. Patient may shower Optifoam dressing intact. Patient may remove Optifoam dressing in 3 days and shower without a dressing at that time. Patient should refrain from driving until at least after their first follow-up appointment in the office. Patient may weight-bear as tolerated right lower extremity with the assistance of a walker. Patient should continue to utilize abductor pillow while lying in bed. MAPS has been reviewed. An "Opiod Start Talking" Form has been signed and placed in the patient's chart. A prescription has been written for hydrocodone 5 mg/325 mg, 1-2 tab every 6 hours as needed for acute pain, dispensed #32. Prescriptions have been written, signed, and placed in the patient's chart for discharge. Patient is also given a prescription for aspirin 325 mg, 1 tab, twice a day, dispensed #60 which she should take until completion. He is given a prescription for Senokot as needed for constipation. Patient's other medical diagnoses include acute blood loss anemia, urinary retention, and atelectasis. Physical Exam on day of discharge: Patient is awake, alert, and oriented 3 Vital signs stable Good chest excursion with deep inspiration and expiration Abdomen soft nontender No signs or symptoms of DVT; no calf pain Extensor hallucis longus, plantarflexion, and dorsiflexion positive sustained right lower extremity No significant pain with palpation over the right hip Surgical dressing over the right hip is clean, dry, and intact; no erythema, purulence, or signs of infection Optifoam dressing intact Procedures: Right hip hemiarthroplasty Patient Condition at Discharge: Stable Plan - Discharge Summary Discharge Rx Participant: No New Discharge Prescriptions: New Aspirin 325 mg PO BID #60 tab HYDROcodone/APAP 5-325MG [Vian 5-325] 1 - 2 tab PO Q6HR PRN #32 tab PRN Reason: Pain Sennosides [Senokot] 2 tab PO DAILY PRN #60 tablet PRN Reason: Constipation No Action Quercetin 500 mg PO W/BRKFST Ascorbic Acid [Vitamin C] 1,000 mg PO W/BRKFST Ubidecarenone [Coenzyme Q10] 200 mg PO W/BRKFST Selenium 100 mcg PO W/BRKFST Pyridoxine HCl (Vitamin B6) [Vitamin B-6] 100 mg PO W/BRKFST Multivitamins, Thera [Multivitamin (formulary)] 1 tab PO W/BRKFST Vitamin B Complex 1 cap PO W/BRKFST Discharge Medication List Ascorbic Acid [Vitamin C] 1,000 mg PO W/BRKFST 08/09/23 [History] Multivitamins, Thera [Multivitamin (formulary)] 1 tab PO W/BRKFST 08/09/23 [History] Pyridoxine HCl (Vitamin B6) [Vitamin B-6] 100 mg PO W/BRKFST 08/09/23 [History] Quercetin 500 mg PO W/BRKFST 08/09/23 [History] Selenium 100 mcg PO W/BRKFST 08/09/23 [History] Ubidecarenone [Coenzyme Q10] 200 mg PO W/BRKFST 08/09/23 [History] Vitamin B Complex 1 cap PO W/BRKFST 08/09/23 [History] Aspirin 325 mg PO BID #60 tab 08/11/23 [Rx] HYDROcodone/APAP 5-325MG [Vian 5-325] 1 - 2 tab PO Q6HR PRN #32 tab 08/11/23 [Rx] Sennosides [Senokot] 2 tab PO DAILY PRN #60 tablet 08/11/23 [Rx] Follow up Appointment(s)/Referral(s): Khalif Orozco, [Doctor of Osteopathic Medicine] - 2 Weeks None,Stated [Primary Care Provider] - 1-2 days Activity/Diet/Wound Care/Special Instructions: 1. Patient may continue to weight-bear as tolerated on the right lower extremity; patient may work with physical therapy to increase mobility and ambulation 2. Continue pain control with hydrocodone as prescribed 3. Abductor pillow to remain in place while lying in bed 4. Weight-bear as tolerated with assistance of a walker 5. Take medications as prescribed Discharge Disposition: TRANSFER TO SNF/ECF
[2023-08-13] MEDS: HYDROcodone/APAP 5-325MG 1 EACH TAB PO PRN ×2 (08:21→17:06)
[2023-08-13 08:25] LABS: Basophils # (A) 0.03 X 10*3/uL (0.00-0.10); Basophils % (A) 0.4 %; Eosinophils # (A) 0.22 X 10*3/uL (0.04-0.35); HCT 28.2 % (39.6-50.0); HGB 9.4 d/dL (13.0-17.0); Lymphocytes # (A) 0.92 X 10*3/uL (0.90-5.00); Lymphocytes % (A) 12.4 %; MCH 31.3 pg (27.0-32.0); MCHC 33.3 d/dL (32.0-37.0); Monocytes # (A) 0.74 X 10*3/uL (0.20-1.00); NRBC Per 100 WBC 0 X 10*3/uL (0.00-0.01); Neutrophils # (A) 5.49 X 10*3/uL (1.80-7.70); Neutrophils % (A) 73.8 %; Platelet Count 129 X 10*3/uL (140-440); RDW 13.2 % (11.5-14.5); WBC 7.43 X 10*3/uL (4.50-10.00)
--- NOTE | 2023-08-13 10:45 | P.PN ---
Subjective Progress Note Date: 08/13/23 Patient had Byrd catheter removed again today with attempted trial of void with initiation of Flomax. Gen: awake, alert HEENT: normocephalic, atraumatic, good hearing acuity, moist mucous membranes Resp: good air exchange, breathing comfortably with no accessory muscle use CVS: good distal perfusion x 4, GI: soft, NTTP, ND : no SPT, no CVAT, byrd catheter not present MSK: no pitting edema, no clubbing Neuro: non-focal, moving all extremities Psych: cooperative, euthymic mood Assessment/plan: patient is 82 year old Male , presetned with right hip pain after a fall. Patient labs reviewed unremarkable , EKG showed normal sinus rhythm Patient is status post right hip fracture ORIF. right hip fracture accidental fall , feeling dizzy -Status post ORIF -Orthopedic surgery following and managing for pain as well as DVT prophylaxis Acute blood loss anemia, expected outcome of surgery -Start patient on oral iron daily, this was prescribed on discharge Urinary retention -Urinary catheter removed, Flomax started, attempt trial of void today Atelectasis -Computed tomography scan of the chest ordered and reviewed today, this finding on CXR of nodule was confirmed to be streak atelectasis and there is no evidence of nodule Objective - Vital Signs Vital signs: Vital Signs Temp 97.8 F 08/13/23 07:29 Pulse 82 08/13/23 07:29 Resp 16 08/13/23 07:29 BP 124/69 08/13/23 07:29 Pulse Ox 91 L 08/13/23 07:29 FiO2 Intake & Output 08/12/23 08/13/23 08/13/23 18:59 06:59 18:59 Output Total 600 850 Balance -600 -850 Output: Urine 600 850 Other: Voiding Method Indwelling Catheter Indwelling Catheter - Labs CBC & Chem 7: 08/13/23 05:54 08/09/23 12:38 Labs: Abnormal Lab Results - Last 24 Hours (Table) 08/13/23 Range/Units 05:54 RBC 3.00 L (4.40-5.60) X 10*6/uL Hgb 9.4 L (13.0-17.0) d/dL Hct 28.2 L (39.6-50.0) % Plt Count 129 L (140-440) X 10*3/uL
[2023-08-13] MEDS: FERROUS SULFATE 325 MG TAB PO SCH (13:15)
[2023-08-13] MEDS: LACTATED RINGERS 1,000 ML IV SCH ×2 (15:06→18:57)
[2023-08-13 15:40] VITALS: BP 115/66; PULSE 95; RESP 17; TEMP 97.7
== END 2023-08-13 19:32 | DRG 522 ==
LOC: EC 10:39 → 4SSUR 15:52
PROVIDERS: ADMIT Orthopaedic Surgery Orthopaedic Surgery of the Spine; ATTEND Orthopaedic Surgery Orthopaedic Surgery of the Spine
PROC: 0SRR0J9 Replacement of Right Hip Joint, Femoral Surface with Synthetic Substitute, Cemented, Open Approach (ICD-10-PCS; principal; 2023-08-10 07:30)
DX: S72.011A Unspecified intracapsular fracture of right femur, initial encounter for closed fracture (principal); D62 Acute posthemorrhagic anemia; C44.90 Unspecified malignant neoplasm of skin, unspecified; I87.8 Other specified disorders of veins; I87.2 Venous insufficiency (chronic) (peripheral); I44.0 Atrioventricular block, first degree; R91.1 Solitary pulmonary nodule; R33.9 Retention of urine, unspecified; Z66 Do not resuscitate; W18.30XA Fall on same level, unspecified, initial encounter; Y93.F9 Activity, other caregiving; Y92.009 Unspecified place in unspecified non-institutional (private) residence as the place of occurrence of the external cause; Z28.310 Unvaccinated for COVID-19
CPT/HCPCS: 36415; 70450; 71045; 71260; 73501; 73502; 80053; 83735; 85025; 85610; 85730; 93005; 96374; 96375; 99285

== ENCOUNTER 2024-01-05 22:57 | Emergency (ER) | payer MEDICARE ==
[2024-01-05 23:23] VITALS: BP 155/84; PULSE 91; RESP 16; TEMP 97.4
[2024-01-05] MEDS: TOPICAL SKIN ADHESIVE 1 EACH AMP TOPICAL ONE (23:37)
--- NOTE | 2024-01-05 23:51 | ED ---
Head Injury HPI - General Chief complaint: Head Injury Stated complaint: Head injury fall Time Seen by Provider: 01/05/24 23:00 Source: patient, family Mode of arrival: ambulatory Limitations: no limitations - History of Present Illness Initial comments: 83-year-old male who presents to the emergency department after he sustained a head injury. He states he was attempting to help his move a chair. The bottom of the chair ended up opening up and the patient fell backwards and hit his head against a stool. He denies losing consciousness. Incident just happened prior to hospital arrival. He does have a scalp laceration and this is what prompted him to come to the emergency department. He denies headaches or visual changes. No nausea or vomiting. No reported confusion from the patient's son who accompanies him at bedside. Patient does not take any blood thinners. Denies any numbness, tingling or weakness in his extremities. Reques ting laceration repair only. No other alleviating, precipitating or modifying factors - Related Data Home Medications Medication Instructions Recorded Confirmed Ascorbic Acid [Vitamin C] 1,000 mg PO W/BRKFST 08/09/23 08/09/23 Multivitamins, Thera [Multivitamin 1 tab PO W/BRKFST 08/09/23 08/09/23 (formulary)] Pyridoxine HCl (Vitamin B6) 100 mg PO W/BRKFST 08/09/23 08/09/23 [Vitamin B-6] Quercetin 500 mg PO W/BRKFST 08/09/23 08/09/23 Selenium 100 mcg PO W/BRKFST 08/09/23 08/09/23 Ubidecarenone [Coenzyme Q10] 200 mg PO W/BRKFST 08/09/23 08/09/23 Vitamin B Complex 1 cap PO W/BRKFST 08/09/23 08/09/23 Previous Rx's Medication Instructions Recorded Aspirin 325 mg PO BID #60 tab 08/11/23 HYDROcodone/APAP 5-325MG [[place] 1 - 2 tab PO Q6HR PRN #32 tab 08/11/23 5-325] Sennosides [Senokot] 2 tab PO DAILY PRN #60 tablet 08/11/23 Ferrous Sulfate [Iron (65 MG 325 mg PO W/LUNCH #30 tab 11/06/23 Elemental)] Tamsulosin [Flomax] 0.4 mg PO PC-BRKFST #30 cap 08/13/23 Allergies/Adverse reactions: Allergies Allergy/AdvReac Type Severity Reaction Status Date / Time No Known Allergies Allergy Verified 01/05/24 23:05 Review of Systems ROS Statement: Those systems with pertinent positive or pertinent negative responses have been documented in the HPI. ROS Other: All systems not noted in ROS Statement are negative. Past Medical History Past Medical History: No Reported History Additional Past Medical History / Comment(s): Skin cancer on face- treated with a one a day capsule treatment for 6 months History of Any Multi-Drug Resistant Organisms: None Reported Past Surgical History: No Surgical Hx Reported, Tonsillectomy Past Anesthesia/Blood Transfusion Reactions: No Reported Reaction Past Psychological History: No Psychological Hx Reported Smoking Status: Never smoker Past Alcohol Use History: Occasional Past Drug Use History: None Reported General Exam Limitations: no limitations General appearance: alert, in no apparent distress Head exam: Present: normocephalic, other (Patient has a skin abrasion to the top of his head measuring 3 x 2 cm. Patient also has a 3 cm laceration. No retained foreign bodies. No vascular injury) Eye exam: Present: normal appearance, PERRL, EOMI. Absent: scleral icterus, conjunctival injection, periorbital swelling ENT exam: Present: normal exam, mucous membranes moist Neck exam: Present: normal inspection. Absent: tenderness, meningismus, lymphadenopathy Respiratory exam: Present: normal lung sounds bilaterally. Absent: respiratory distress, wheezes, rales, rhonchi, stridor Cardiovascular Exam: Present: regular rate, normal rhythm, normal heart sounds. Absent: systolic murmur, diastolic murmur, rubs, gallop, clicks GI/Abdominal exam: Present: soft, normal bowel sounds. Absent: distended, tenderness, guarding, rebound, rigid Extremities exam: Present: normal inspection, full ROM, normal capillary refill. Absent: tenderness, pedal edema, joint swelling, calf tenderness Back exam: Present: normal inspection Neurological exam: Present: alert, oriented X3, CN II-XII intact Psychiatric exam: Present: normal affect, normal mood Skin exam: Present: warm, dry, intact, normal color. Absent: rash Course Vital Signs 01/05/24 22:58 Temperature 97.4 F L Pulse Rate 91 Respiratory 16 Rate Blood Pressure 155/84 O2 Sat by Pulse 98 Oximetry Medical Decision Making - Medical Decision Making Was pt. sent in by a medical professional or institution (JACINTO Chaves, [employer], urgent care, hospital, or longterm...) When possible be specific @ -No Did you speak to anyone other than the patient for history (EMS, parent, family, police, friend...)? What history was obtained from this source @ -Spoke with the patient's son who is at bedside Did you review nursing and triage notes (agree or disagree)? Why? @ -I reviewed and agree with nursing and triage notes Were old charts reviewed (outside hosp., previous admission, EMS record, old EKG, old radiological studies, urgent care reports/EKG's, longterm records)? Report findings @ -No old charts were reviewed Differential Diagnosis (chest pain, altered mental status, abdominal pain women, abdominal pain men, vaginal bleeding, weakness, fever, dyspnea, syncope, headache, dizziness, GI bleed, back pain, seizure, CVA, palpatations, mental health, musculoskeletal)? @ -Concussion, skull fracture, subdural, subarachnoid EKG interpreted by me (3pts min.). @ -Not done X-rays interpreted by me (1pt min.). @ -None done CT interpreted by me (1pt min.). @ -None done U/S interpreted by me (1pt. min.). @ -None done What testing was considered but not performed or refused? (CT, X-rays, U/S, labs)? Why? @ -CT was considered however patient is not on blood thinners and he has no focal neurologic deficit What meds were considered but not given or refused? Why? @ -None Did you discuss the management of the patient with other professionals (professionals i.e. JACINTO Chaves, [employer], lab, RT, psych nurse, social services analyst, inpatient auditor, teacher, investigation officer, nurse outreach case manager)? Give summary @ -No Was smoking cessation discussed for >3mins.? @ -No Was critical care preformed (if so, how long)? @ -No Were there social determinants of health that impacted care today? How? (Homelessness, low income, unemployed, alcoholism, drug addiction, transportation, low edu. Level, literacy, decrease access to med. care, assisted, rehab)? @ -No Was there de-escalation of care discussed even if they declined (Discuss DNR or withdrawal of care, Hospice)? DNR status @ -No What co-morbidities impacted this encounter? (DM, HTN, Smoking, COPD, CAD, Cancer, CVA, ARF, Chemo, Hep., AIDS, mental health diagnosis, sleep apnea, morbid obesity)? @ -None Was patient admitted / discharged? Hospital course, mention meds given and route, prescriptions, significant lab abnormalities, going to OR and other pertinent info. @ -Upon arrival patient was placed into room 21. Thorough history and physical exam was performed. Patient does have blunt head trauma however no focal neurologic deficits and therefore CT is not performed. He has no neck pain. I did perform staple closure of the patient's scalp laceration. At this time patient be discharged home. Instructed that he is to return in 5 days to have his matteo removed. Patient was agreeable to this. Patient will be with his at all times tonight. Instructed to return for any new or worsening symptoms. Patient discharged in stable condition Undiagnosed new problem with uncertain prognosis? @ -No Drug Therapy requiring intensive monitoring for toxicity (Heparin, Nitro, Insulin, Cardizem)? @ -No Were any procedures done? @ -Stable closure of scalp laceration. The wound was anesthetized using 5 cc of 1% lidocaine with epinephrine. The wound was then explored in a bloodless field which revealed no deep structure involvement. No tendon or vascular involvement. No underlying bony fracture. The wound was cleansed with a copious amount of normal saline. I then placed 3 matteo into the patient's scalp. Patient tolerated the procedure well Diagnosis/symptom? @ -Acute fall, blunt head trauma, scalp laceration Acute, or Chronic, or Acute on Chronic? @ -Acute Uncomplicated (without systemic symptoms) or Complicated (systemic symptoms)? @ -Complicated Side effects of treatment? @ -No Exacerbation, Progression, or Severe Exacerbation? @ -No Poses a threat to life or bodily function? How? (Chest pain, [place], [place], pneumonia, PE, COPD, DKA, ARF, appy, cholecystitis, CVA, Diverticulitis, Homicidal, Suicidal, threat to staff... and all critical care pts) @ -No Disposition Clinical Impression: Scalp laceration, Fall, Blunt head injury Disposition: HOME SELF-CARE Condition: Stable Instructions (If sedation given, give patient instructions): Laceration (ED), Head Injury (DC), Staple Care (ED) Additional Instructions: Please return to the ER within 5 to 7 days to have your matteo removed. I recommend placing some bacitracin to the area of your wounds. You may keep them open to air. Return for any new or worsening symptoms Is patient prescribed a controlled substance at d/c from ED?: No Referrals: None,Stated [Primary Care Provider] - 1-2 days Time of Disposition: 23:51
[2024-01-05] MEDS: BACITRACIN OINT 1 EACH PACKET TOPICAL ONE (23:56)
== END 2024-01-06 00:08 | disposition home or self-care (01) ==
LOC: EC 22:57
DX: S01.01XA Laceration without foreign body of scalp, initial encounter (principal); W07.XXXA Fall from chair, initial encounter
CPT/HCPCS: 12001; 99283

== ENCOUNTER 2024-08-14 16:35 | Emergency (ER) | payer MEDICARE ==
[2024-08-14 17:10] VITALS: TEMP 98.3
--- NOTE | 2024-08-14 17:37 | ED ---
Fall HPI - General Chief Complaint: Fall Stated Complaint: fall, back pain Time Seen by Provider: 08/14/24 16:50 Source: patient, RN notes reviewed Mode of arrival: ambulatory - History of Present Illness Initial Comments: This is an 83-year-old male with no significant past medical history presenting to the emergency department chief complaint of lumbar back pain. Patient states that on 08/08/24, was moving a couch at home when he pulled his back and fell onto the right side of his body. Patient denies hitting her head or loss conscious at the time of this event. Patient originally thought that pain was from a pulled muscle however this has persisted. Patient denies radiation of pain down bilateral lower extremities, loss of bladder or bowel functions or saddle anesthesias. Denies pain of the right hip, right knee, right shoulder or right chest. Denies previous surgeries of the lumbar spine. Pain is exacerbated with ambulation, range of motion, and palpation. - Related Data Home Medications Medication Instructions Recorded Confirmed Ascorbic Acid [Vitamin C] 1,000 mg PO W/BRKFST 08/09/23 08/09/23 Multivitamins, Thera [Multivitamin 1 tab PO W/BRKFST 08/09/23 08/09/23 (formulary)] Pyridoxine HCl (Vitamin B6) 100 mg PO W/BRKFST 08/09/23 08/09/23 [Vitamin B-6] Quercetin 500 mg PO W/BRKFST 08/09/23 08/09/23 Selenium 100 mcg PO W/BRKFST 08/09/23 08/09/23 Ubidecarenone [Coenzyme Q10] 200 mg PO W/BRKFST 08/09/23 08/09/23 Vitamin B Complex 1 cap PO W/BRKFST 08/09/23 08/09/23 Previous Rx's Medication Instructions Recorded Aspirin 325 mg PO BID #60 tab 08/11/23 HYDROcodone/APAP 5-325MG [[place] 1 - 2 tab PO Q6HR PRN #32 tab 08/11/23 5-325] Sennosides [Senokot] 2 tab PO DAILY PRN #60 tablet 08/11/23 Ferrous Sulfate [Iron (65 MG 325 mg PO W/LUNCH #30 tab 08/13/23 Elemental)] Tamsulosin [Flomax] 0.4 mg PO PC-BRKFST #30 cap 08/13/23 Ketorolac [Toradol] 10 mg PO Q8HR PRN #15 tab 08/14/24 Lidocaine 5% Patch [Lidoderm] 1 patch TOPICAL DAILY #7 patch 08/14/24 Allergies Allergy/AdvReac Type Severity Reaction Status Date / Time No Known Allergies Allergy Verified 08/14/24 17:10 Review of Systems ROS Statement: Those systems with pertinent positive or pertinent negative responses have been documented in the HPI. ROS Other: All systems not noted in ROS Statement are negative. Past Medical History Past Medical History: No Reported History Additional Past Medical History / Comment(s): Skin cancer on face- treated with a one a day capsule treatment for 6 months History of Any Multi-Drug Resistant Organisms: None Reported Past Surgical History: No Surgical Hx Reported, Tonsillectomy Past Anesthesia/Blood Transfusion Reactions: No Reported Reaction Past Psychological History: No Psychological Hx Reported Smoking Status: Never smoker Past Alcohol Use History: Occasional Past Drug Use History: None Reported General Exam Limitations: no limitations General appearance: alert, in no apparent distress Eye exam: Present: normal appearance, PERRL, EOMI. Absent: scleral icterus, conjunctival injection, periorbital swelling Neck exam: Present: normal inspection. Absent: tenderness, meningismus, lymphadenopathy Respiratory exam: Present: normal lung sounds bilaterally. Absent: respiratory distress, wheezes, rales, rhonchi, stridor Cardiovascular Exam: Present: regular rate, normal rhythm, normal heart sounds. Absent: systolic murmur, diastolic murmur, rubs, gallop, clicks GI/Abdominal exam: Present: soft, normal bowel sounds. Absent: distended, tenderness, guarding, rebound, rigid Extremities exam: Present: normal inspection, full ROM, normal capillary refill, other (bilateral LE edema). Absent: tenderness, pedal edema, joint swelling, calf tenderness Back exam: Present: normal inspection, tenderness (lumbar spine exacerabted with ROM and palpation) Neurological exam: Present: alert, oriented X3, CN II-XII intact Course Vital Signs 08/14/24 17:05 Temperature 98.3 F Pulse Rate 56 L Respiratory 20 Rate Blood Pressure 153/80 O2 Sat by Pulse 97 Oximetry Medical Decision Making - Medical Decision Making Was pt. sent in by a medical professional or institution (, PA, EDGE PLUGGER, urgent care, hospital, or longterm...) When possible be specific @ -No Did you speak to anyone other than the patient for history (EMS, parent, family, police, friend...)? What history was obtained from this source @ -No Did you review nursing and triage notes (agree or disagree)? Why? @ -I reviewed and agree with nursing and triage notes Were old charts reviewed (outside hosp., previous admission, EMS record, old EKG, old radiological studies, urgent care reports/EKG's, longterm records)? Report findings @ -No old charts were reviewed Differential Diagnosis (chest pain, altered mental status, abdominal pain women, abdominal pain men, vaginal bleeding, weakness, fever, dyspnea, syncope, headache, dizziness, GI bleed, back pain, seizure, CVA, palpatations, mental health, musculoskeletal)? @ -Differential Back Pain: Strain, zoster, cauda equina syndrome, epidural abscess, vertebral osteomyelitis, discitis, fracture, subluxation, disc herniation, DJD, spinal stenosis, dissection, AAA, pancreatitis, peptic ulcer disease, pyelonephritis, kidney stone, this is not meant to be an all-inclusive list. EKG interpreted by me (3pts min.). @ -none X-rays interpreted by me (1pt min.). @ -XR lumbar spine reveals no suspicious acute changes with vertebral heights preserved and normal CT interpreted by me (1pt min.). @ -None done U/S interpreted by me (1pt. min.). @ -None done What testing was considered but not performed or refused? (CT, X-rays, U/S, labs)? Why? @ -None What meds were considered but not given or refused? Why? @ -None Did you discuss the management of the patient with other professionals (professionals i.e. , JACINTO, EDGE PLUGGER, lab, RT, psych nurse, oncology social work, clerk typist, teacher, court registry officer, spring encaser)? Give summary @ -No Was smoking cessation discussed for >3mins.? @ -No Was critical care preformed (if so, how long)? @ -No Were there social determinants of health that impacted care today? How? (Homelessness, low income, unemployed, alcoholism, drug addiction, transportation, low edu. Level, literacy, decrease access to med. care, long-term, rehab)? @ -No Was there de-escalation of care discussed even if they declined (Discuss DNR or withdrawal of care, Hospice)? DNR status @ -No What co-morbidities impacted this encounter? (DM, HTN, Smoking, COPD, CAD, Cancer, CVA, ARF, Chemo, Hep., AIDS, mental health diagnosis, sleep apnea, morbid obesity)? @ -None Was patient admitted / discharged? Hospital course, mention meds given and route, prescriptions, significant lab abnormalities, going to OR and other pertinent info. @ -Discharge. 83-year-old male with back pain. On my evaluation patient is resting up in no signs acute distress. His vitals are stable. Patient is noted to have lumbar back pain exacerbated on palpation and with range of motion. Is not exhibiting red flag symptoms concerning for cauda equina at this time. Patient does not have any radicular symptoms. Muscle strength intact bilaterally with no paresthesias. Patient provided with lidocaine patch and Toradol. X-ray unremarkable. On reevaluation patient states that pain is markedly improved after medication administration. Patient sent prescription for lidocaine patches and Toradol and instructed to continue gentle exercises and heat at home to alleviate symptoms of muscle strain. Discussed with Dr. Russ Undiagnosed new problem with uncertain prognosis? @ -No Drug Therapy requiring intensive monitoring for toxicity (Heparin, Nitro, Insulin, Cardizem)? @ -No Were any procedures done? @ -No Diagnosis/symptom? @ -lumbar back pain, muscle strain Acute, or Chronic, or Acute on Chronic? @ -Acute Uncomplicated (without systemic symptoms) or Complicated (systemic symptoms)? @ -Uncomplicated Side effects of treatment? @ -No Exacerbation, Progression, or Severe Exacerbation? @ -No Poses a threat to life or bodily function? How? (Chest pain, USA, [place], pneumonia, PE, COPD, DKA, ARF, appy, cholecystitis, CVA, Diverticulitis, Homicidal, Suicidal, threat to staff... and all critical care pts) @ -No Disposition Clinical Impression: Lumbar back sprain Disposition: HOME SELF-CARE Condition: Good Instructions (If sedation given, give patient instructions): Muscle Strain (DC), Lower Back Exercises (ED) Additional Instructions: Please return to the Emergency Department if symptoms worsen or any other concerns. Use Toradol as needed for pain relief and lidocaine patches. You can take Tylenol with Toradol however do not combine any other anti-inflammatories with Toradol such as Motrin or ibuprofen. Continue with gentle exercise of the lumbar spine and heat. Prescriptions: Lidocaine 5% Patch [Lidoderm] 1 patch TOPICAL DAILY #7 patch Ketorolac [Toradol] 10 mg PO Q8HR PRN #15 tab PRN Reason: Pain Is patient prescribed a controlled substance at d/c from ED?: No Referrals: None,Stated [Primary Care Provider] - 1-2 days Time of Disposition: 18:35
[2024-08-14] MEDS: LIDOCAINE 4% PATCH TOPICAL ONE (17:48)
[2024-08-14] MEDS: KETOROLAC 15 MG/ML 1 ML VIAL IM STA (17:49)
--- NOTE | 2024-08-14 18:06 | XR ---
EXAMINATION TYPE: XR lumbar spine 2 or 3V DATE OF EXAM: 08/14/2024 6:03 PM COMPARISON: None. CLINICAL INDICATION: Male, 83 years old with history of fall, injury, pain, TECHNIQUE: XR lumbar spine 2 or 3V view(s) obtained. FINDINGS: There are 5 lumbar-type vertebral bodies. Pedicles are intact. Disc heights are preserved. Vertebral body heights are preserved and alignment appears normal. IMPRESSION: 1. No suspicious acute changes lumbar spine [facility], , 08/14/2024 6:04 PM
[2024-08-14 19:01] VITALS: BP 131/65; PULSE 50; RESP 18
== END 2024-08-14 19:01 | disposition home or self-care (01) ==
LOC: EC 16:35
DX: S33.5XXA Sprain of ligaments of lumbar spine, initial encounter (principal); W18.30XA Fall on same level, unspecified, initial encounter
CPT/HCPCS: 72100; 99283; 96372; J1885

== ENCOUNTER 2025-02-17 16:51 | Emergency (ER) | payer MEDICARE ==
[2025-02-17 17:04] VITALS: TEMP 98.3
[2025-02-17] MEDS: HYDROmorphone 0.5 MG/0.5 ML SYRINGE IM STA (17:24)
[2025-02-17] MEDS: DEXAMETHASONE SOD PHOSPHATE 10 MG/ML 1 ML VIAL IM STA (17:26)
[2025-02-17] MEDS: LIDOCAINE 4% PATCH TOPICAL ONE (17:27)
--- NOTE | 2025-02-17 18:01 | XR ---
EXAMINATION TYPE: XR KUB DATE OF EXAM: 02/17/2025 COMPARISON: NONE HISTORY: Constipation TECHNIQUE: Single supine KUB image of the abdomen is obtained FINDINGS: Small bowel demonstrates no evidence for dilatation or air fluid levels. Gas and fecal material is seen in non-distended colon. No convincing evidence for pneumoperitoneum. Right-sided pelvic phlebolith. The lung bases are clear. The osseous structures are intact. 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 IMPRESSION: Overall nonobstructive bowel gas pattern. Mild amount of stool present in the colon. [facility], , 02/17/2025 5:59 PM
--- NOTE | 2025-02-17 18:05 | XR ---
EXAMINATION TYPE: XR lumbar spine 2 or 3V DATE OF EXAM: 02/17/2025 CLINICAL HISTORY: Lumbar spine radiograph 08/14/2024 TECHNIQUE: Three views of the lumbar spine are submitted. COMPARISON: None. FINDINGS: Limited examination due to overlying bowel gas. There are 5 lumbar type vertebral bodies identified. The lumbar spine shows satisfactory alignment. Development of anterior wedge compression deformity of the L5 vertebral body with approximately 10 % height loss and no obvious retropulsion. Suggest a superior endplate compression deformity L4 vertebr al body. 2 level disc space narrowing with endplate sclerosis and anterior osteophytosis. The overlyi ng soft tissue appears unremarkable. IMPRESSION: Limited examination due to overlying bowel gas. 1. Acute appearing anterior wedge compression deformity of the L5 vertebral body with approximately 10 % height loss and no obvious retropulsion. Additional suggested superior endplate compression defo rmity of L4 vertebral body. Consider further evaluation with CT. 2. Multilevel degenerative disc disease. [facility], , 02/17/2025 6:03 PM
--- NOTE | 2025-02-17 18:08 | XR ---
EXAMINATION TYPE: XR Hip Bilateral and AP pelvis DATE OF EXAM: 02/17/2025 5:58 PM INDICATION: Patient age:Male; 84 years old; Reason for study: fall; PHH. pain COMPARISON: Right hip radiograph 08/10/2023, 08/09/2023 CT right hip 08/09/2023 TECHNIQUE: The bilateral hips were examined in the frontal and lateral projections and a AP pelvis. 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 Hardware appears intact with appro priate alignment. No acute fracture or dislocation identified. Mild osteoarthritic changes of the lef t hip with medial joint space narrowing. The SI joints appear intact. Right-sided pelvic phlebolith. No soft tissue swelling. Vascular sclerosis. IMPRESSION: 1. No acute osseous pathology. 2. 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 Hardware appears intact with appropriate alignm ent. 3. 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 [facility], , 02/17/2025 6:06 PM
[2025-02-17] MEDS: HYDROmorphone 0.5 MG/0.5 ML SYRINGE IVP STA (18:46)
--- NOTE | 2025-02-17 19:09 | ED ---
Back Pain HPI - General Chief Complaint: Back Pain/Injury Stated Complaint: Fall-Back injury Time Seen by Provider: 02/17/25 17:08 Source: patient Limitations: no limitations - History of Present Illness Initial Comments: 84-year-old male presenting with chief complaint of lower back pain. Patient reports that about 1 week ago he was lifting and moving a lot of heavy objects around the house preparing for guests. Few days later he started having lower back pain. It is particularly worse on the left side. Does not travel down his legs. No loss of bowel or bladder control or saddle paresthesia. He reports that he has been using a cane and a walker to get around his home. Last night while he got up to use the bathroom the walker got caught on some shoes on the floor causing him to fall over. 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 He denies any head injury, loss of consciousness, or use of blood thinners. This happened at around 2 AM and by 2:30 AM his son was there to help him get up off the floor. He came in today because he is having continued pain and difficulty ambulating. - Related Data Home Medications Medication Instructions Recorded Confirmed Ascorbic Acid [Vitamin C] 1,000 mg PO W/BRKFST 08/09/23 08/09/23 Multivitamins, Thera [Multivitamin 1 tab PO W/BRKFST 08/09/23 08/09/23 (formulary)] Pyridoxine HCl (Vitamin B6) 100 mg PO W/BRKFST 08/09/23 08/09/23 [Vitamin B-6] Quercetin 500 mg PO W/BRKFST 08/09/23 08/09/23 Selenium 100 mcg PO W/BRKFST 08/09/23 08/09/23 Ubidecarenone [Coenzyme Q10] 200 mg PO W/BRKFST 08/09/23 08/09/23 Vitamin B Complex 1 cap PO W/BRKFST 08/09/23 08/09/23 Previous Rx's Medication Instructions Recorded Aspirin 325 mg PO BID #60 tab 08/11/23 HYDROcodone/APAP 5-325MG [[place] 1 - 2 tab PO Q6HR PRN #32 tab 08/11/23 5-325] Sennosides [Senokot] 2 tab PO DAILY PRN #60 tablet 08/11/23 Ferrous Sulfate [Iron (65 MG 325 mg PO W/LUNCH #30 tab 08/13/23 Elemental)] Tamsulosin [Flomax] 0.4 mg PO PC-BRKFST #30 cap 08/13/23 Ketorolac [Toradol] 10 mg PO Q8HR PRN #15 tab 08/14/24 Lidocaine 5% Patch [Lidoderm] 1 patch TOPICAL DAILY #7 patch 08/14/24 Acetaminophen-Codeine 300-30mg 1 tab PO Q6H PRN 3 Days #12 tablet 02/17/25 [Tylenol w/codeine #3] Allergies Allergy/AdvReac Type Severity Reaction Status Date / Time No Known Allergies Allergy Verified 02/17/25 17:04 Review of Systems ROS Statement: Those systems with pertinent positive or pertinent negative responses have been documented in the HPI. ROS Other: All systems not noted in ROS Statement are negative. Past Medical History Past Medical History: No Reported History Additional Past Medical History / Comment(s): Skin cancer on face- treated with a one a day capsule treatment for 6 months History of Any Multi-Drug Resistant Organisms: None Reported Past Surgical History: No Surgical Hx Reported, Tonsillectomy Past Anesthesia/Blood Transfusion Reactions: No Reported Reaction Past Psychological History: No Psychological Hx Reported Smoking Status: Never smoker Past Alcohol Use History: Occasional Past Drug Use History: None Reported General Exam Limitations: no limitations General appearance: alert, in no apparent distress Head exam: Present: atraumatic, normocephalic, normal inspection Eye exam: Present: normal appearance, EOMI Neck exam: Present: normal inspection. Absent: meningismus Respiratory exam: Absent: respiratory distress Cardiovascular Exam: Present: regular rate Back exam: Present: normal inspection, tenderness Neurological exam: Present: alert, oriented X3 Psychiatric exam: Present: normal affect, normal mood Skin exam: Present: warm, dry, normal color Course Vital Signs 02/17/25 02/17/25 02/17/25 17:01 18:46 19:54 Temperature 98.3 F Pulse Rate 84 72 Respiratory 22 16 Rate Blood Pressure 147/92 144/85 142/78 O2 Sat by Pulse 97 94 L Oximetry Medical Decision Making - Medical Decision Making Patient is a previous patient of Dr. Orozco, will follow-up with his office for his lumbar compression fractures Was pt. sent in by a medical professional or institution (, PA, UI DEVELOPER DESIGNER, urgent care, hospital, or fdc...) When possible be specific @ -No Did you speak to anyone other than the patient for history (EMS, parent, family, police, friend...)? What history was obtained from this source @ -Patient's son Did you review nursing and triage notes (agree or disagree)? Why? @ -I reviewed and agree with nursing and triage notes Were old charts reviewed (outside hosp., previous admission, EMS record, old EKG, old radiological studies, urgent care reports/EKG's, fdc records)? Report findings @ -No old charts were reviewed Differential Diagnosis (chest pain, altered mental status, abdominal pain women, abdominal pain men, vaginal bleeding, weakness, fever, dyspnea, syncope, headache, dizziness, GI bleed, back pain, seizure, CVA, palpatations, mental health, musculoskeletal)? @ - MDM Differential Back Pain: Strain, zoster, cauda equina syndrome, epidural abscess, vertebral osteomyelitis, discitis, fracture, subluxation, disc herniation, DJD, spinal stenosis, dissection, AAA, pancreatitis, peptic ulcer disease, pyelonephritis, kidney stone… this is not meant to be an all-inclusive list. EKG interpreted by me (3pts min.). @ -As above X-rays interpreted by me (1pt min.). @ -KUB x-ray shows overall nonobstructive bowel gas pattern. Mild amount of stool present in the colon Lumbar spine x-ray shows acute appearing anterior wedge compression deformity of the L5 vertebral body with approximately 10% height loss and no obvious retropulsion. Additional suggested superior endplate compression deformity of the L4 vertebral body. Consider further evaluation with CT. Multilevel degenerative disc disease X-ray of the hips shows no acute osseous pathology. 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 Hardware appears intact with appropriate alignment. 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 @ -CT shows new acute appearing compression fractures of the L1 and L4 and L5 vertebral bodies as described above. Correlate with point tenderness. Mild to moderate multilevel degenerative disc disease with facet arthropathy. Mild abdominal aortic aneurysm measuring 3.1 cm. Cholelithiasis. U/S interpreted by me (1pt. min.). @ -None done What testing was considered but not performed or refused? (CT, X-rays, U/S, labs)? Why? @ -None What meds were considered but not given or refused? Why? @ -None Did you discuss the management of the patient with other professionals (professionals i.e. , PA, UI DEVELOPER DESIGNER, lab, RT, psych nurse, psychiatric social worker supervisor, grain operations manager, teacher, sba business development officer, casework manager)? Give summary @ -No Was smoking cessation discussed for >3mins.? @ -No Was critical care preformed (if so, how long)? @ -No Were there social determinants of health that impacted care today? How? (Homelessness, low income, unemployed, alcoholism, drug addiction, transportation, low edu. Level, literacy, decrease access to med. care, senior care, rehab)? @ -No Was there de-escalation of care discussed even if they declined (Discuss DNR or withdrawal of care, Hospice)? DNR status @ -No What co-morbidities impacted this encounter? (DM, HTN, Smoking, COPD, CAD, Cancer, CVA, ARF, Chemo, Hep., AIDS, mental health diagnosis, sleep apnea, morbid obesity)? @ -None Was patient admitted / discharged? Hospital course, mention meds given and route, prescriptions, significant lab abnormalities, going to OR and other pert inent info. @ -84-year-old male presenting with chief complaint of lower back pain. This started after moving heavy objects around the house about a week ago. No red flag symptoms. Patient reports that last night he had a fall, no head injury loss of consciousness or use of blood thinners. He was unable to get himself so within 30 minutes his son was at his house to help him get up. He then came here today for evaluation because he is having difficulty ambulating due to the pain. History and physical examination are conducted. X-ray shows vertebral compression fractures of L4 and L5. Patient is also complaining of constipation and has not had a bowel movement in 5 days. KUB confirms constipation. CT confirms compression fractures of L1 L4 and L5. There is no significant central canal stenosis or retropulsion. After pain medication patient is able to ambulate at his baseline. He is educated on all of today's findings. He will follow-up with his orthopedist Dr. Orozco who he has seen in the past. Provided with an order for a TLSO brace. Provided with magnesium citrate for home for his constipation. Provided with pain meds for home. Follow-up with PCP. Report back to ER with any new or worsening symptoms. Discussed return parameters and answered all questions. Patient conveyed verbal understanding and agreed to the plan. I discussed this case in detail with my attending Dr. eRddy Undiagnosed new problem with uncertain prognosis? @ -No Drug Therapy requiring intensive monitoring for toxicity (Heparin, Nitro, Insulin, Cardizem)? @ -No Were any procedures done? @ -No Diagnosis/symptom? @ -Vertebral compression fractures Acute, or Chronic, or Acute on Chronic? @ -Acute Uncomplicated (without systemic symptoms) or Complicated (systemic symptoms)? @ -Uncomplicated Side effects of treatment? @ -No Exacerbation, Progression, or Severe Exacerbation? @ -No Poses a threat to life or bodily function? How? (Chest pain, [place], [place], pneumonia, PE, COPD, DKA, ARF, appy, cholecystitis, CVA, Diverticulitis, Homicidal, Suicidal, threat to staff... and all critical care pts) @ -Low likelihood at this time, follow-up with orthopedics for definitive management Disposition Clinical Impression: Lumbar compression fracture Disposition: HOME SELF-CARE Condition: Good Instructions (If sedation given, give patient instructions): Vertebral Compression Fracture (ED) Additional Instructions: Follow-up with PCP and orthopedics. Report back to ER with any new or worsening symptoms. Take medication as prescribed. Take your magnesium citrate when you know you will be home and awake for several hours. Make sure you stay well-hydrated. Prescriptions: Acetaminophen-Codeine 300-30mg [Tylenol w/codeine #3] 1 tab PO Q6H PRN 3 Days #12 tablet PRN Reason: Pain Is patient prescribed a controlled substance at d/c from ED?: Yes When asked, does pt state using other controlled substances?: No If prescribed controlled substance>3 days was MAPS reviewed?: Prescribed <3 Days If opioid is for acute pain is fill amount 7 days or less?: Yes Referrals: None,Stated [Primary Care Provider] - 1-2 days Khalif Orozco, DO [Doctor of Osteopathic Medicine] - 1-2 days Time of Disposition: 20:26
--- NOTE | 2025-02-17 19:24 | CT ---
EXAMINATION TYPE: CT lumbar spine wo con CT DLP: 1127.6 mGycm, Automated exposure control for dose reduction was used. DATE OF EXAM: 02/17/2025 7:11 PM COMPARISON: Lumbar spine radiograph 02/17/2025, 08/14/2024. CLINICAL INDICATION:Male, 84 years old with history of compression fractures; PHH, compression fractu res, pain TECHNIQUE: Multiple axial images were obtained from the midportion of T11 through the sacroiliac misael nts. Soft tissue and bone windows in coronal and sagittal planes were obtained and reviewed. Contrast used: none. Oral contrast used: none. FINDINGS: Alignment: There are 5 lumbar type vertebral bodies within normal alignment. Bone: Diffuse bone demineralization which limits evaluation. Compression deformity with sclerosis inv olving the L5 vertebral body with approximately 50% height loss and 5 mm retropulsion. Superior endpl ate compression deformity with sclerosis involving the L4 vertebral body with approximately 25% heigh t loss and 3 mm retropulsion. Prominent Schmorl's node involving the superior and inferior endplates of the L2 vertebral body. Schmorl's noted involving the inferior endplate of the L1 vertebral body. V ertically oriented fracture through the L1 vertebral body with approximately 5% height loss of the walters perior endplate. No retropulsion. Degenerative changes bilateral SI joints. Discs: T12-L1: No spinal canal or neural foraminal stenosis is identified. L1-L2: No spinal canal or neural foraminal stenosis is identified. L2-L3: Broad-based disc bulge with ligamentum flavum buckling resulting in mild central canal stenosi s. Bilateral facet arthropathy. Mild bilateral neural foraminal stenosis. L3-L4: Broad-based disc bulge with ligamentum flavum buckling resulting in mild central canal stenosi s. Bilateral facet arthropathy. Mild to moderate bilateral neural foraminal stenosis. L4-L5: Broad-based disc bulge with ligamentum flavum buckling contributing to mild central canal sten osis. Bilateral facet arthropathy. Moderate left and mild to moderate right neuroforaminal stenosis. L5-S1: No central canal stenosis. Bilateral facet arthropathy. Mild bilateral neural foraminal stenos is. Other: Small hiatal hernia. Multiple small layering gallstones identified. Atherosclerotic calcificat ion of the aorta and its branches. Fusiform aneurysmal dilatation of the mid abdominal aorta measurin g up to 3.1 cm. IMPRESSION: 1. New acute appearing compression fractures of the L1, L4, and L5 vertebral bodies as described abov e. Correlate with point tenderness. 2. Mild to moderate multilevel degenerative disc disease and facet arthropathy. 3. Mid abdominal aortic aneurysm measuring 3.1 cm. 4. Cholelithiasis. [facility], , 02/17/2025 7:21 PM
[2025-02-17 19:58] VITALS: BP 142/78; PULSE 72; RESP 16
[2025-02-17] MEDS: ACET/COD 300 MG/30 MG STARTER PACK 6 TAB BTL PO STA (20:44)
[2025-02-17] MEDS: MAGNESIUM CITRATE 296 ML BOTTLE PO ONE (20:45)
== END 2025-02-17 20:55 | disposition home or self-care (01) ==
LOC: EC 16:51
DX: S32.008A Other fracture of unspecified lumbar vertebra, initial encounter for closed fracture (principal); S32.010A Wedge compression fracture of first lumbar vertebra, initial encounter for closed fracture; S32.040A Wedge compression fracture of fourth lumbar vertebra, initial encounter for closed fracture; W18.39XA Other fall on same level, initial encounter
CPT/HCPCS: 72100; 73521; 74018; 72131; 99284; 96374; 96372 ×2; J1100; J1171